=== PATIENT | male | born 1935 | race Caucasian/White ===

== ENCOUNTER 2020-01-30 02:35 | Emergency (ER) | payer MEDICARE, OTHER, SELFPAY ==
[2020-01-30] VITALS (18 sets, daily range): BP systolic 74–129; BP diastolic 40–69; PULSE 45–93; RESP 14–24; TEMP 36.6; O2SAT 96–100; BMI 27.3
--- NOTE | 2020-01-30 02:37 | ED.CHESTPAIN ---
HPI - Chest Pain General Chief Complaint: Chest Pain Stated Complaint: Chest discomfort Time Seen by Provider: 01/30/20 02:37 Source: patient Mode of arrival: Ambulatory Limitations: no limitations History of Present Illness HPI narrative: The patient arrives by EMS after experiencing chest pain and dyspnea intermittently for 3 days. He has noted increased discomfort with even mild exertion. However tonight the pain started 6:00 p.m., after dinner. The pain usually resolves when he rests. He fell asleep, the pain was still present when he woke up about 1:00 a.m.. The pain intensified to a 8/10 in discomfort. He also was experiencing dyspnea and diaphoresis at the time. His doctor started him on baby aspirin last week. He summoned paramedics. Paramedics gave him a aspirin as well as 2 doses of sublingual nitroglycerin. He has no chest pain or dyspnea upon arrival. He has a history of angina in the . He has a history of left carotid stent, previous experiencing TIAs. He has MS, currently on no medications. He has no history of hypertension, hyperlipidemia, or diabetes. He is on no medications other than aspirin. His primary care doctor has set him up for cardiology appointment, that appointment is several days away. He has no history of OR. He has no cough for fever. He is concerned about his is home with dementia. Related Data Allergies Allergy/AdvReac Type Severity Reaction Status Date / Time No Known Drug Allergies Allergy Verified 01/30/20 04:20 Review of Systems Review of Systems ROS Unobtainable: All systems reviewed & are unremarkable except as noted in HPI and below Constitutional Constitutional: Denies chills, Denies fever(s), Denies lethargy and Denies weakness Eyes Eyes: Denies change in vision and Denies loss of vision ENT Ears, Nose, Mouth, and Throat: Denies change in voice, Denies neck pain and Denies sore throat Cardiovascular Cardiovascular: Reports chest pain, Reports chest pain with activity, Reports diaphoresis, Denies syncope, Denies rapid heart rate, Denies claudication, Denies leg edema and Reports dyspnea on exertion Respiratory Respiratory: Denies chest congestion, Denies cough, Denies hemoptysis and Reports dyspnea on exertion Gastrointestinal Gastrointestinal: Denies abdominal pain, Denies diarrhea, Denies nausea and Denies vomiting Comments: Normal appetite Musculoskeletal Musculoskeletal: Denies back pain and Denies neck pain Integumentary/Breasts Skin/Breast: Denies erythema, Denies rash and Denies wounds Neurologic Neurologic: Denies confusion, Denies syncope, Denies loss of vision and Denies weakness Psychiatric Psychiatric: Denies anxiety, Denies confusion and Denies depression Patient History Medical History (Updated 01/30/20 @ 04:26 by Armond Vazquez MD) History of angina (Acute) History of left common carotid artery stent placement (Acute) History of TIA (transient ischemic attack) (Acute) Multiple sclerosis (Acute) Peripheral vascular disease (Acute) Social History Smoking Status: Never smoker Exam Initial Vital Signs Initial Vital Signs: Vital Signs Temperature 97.8 F 01/30/20 02:52 Pulse Rate 87 01/30/20 02:52 Respiratory Rate 15 01/30/20 02:52 Blood Pressure 104/69 01/30/20 02:52 Pulse Oximetry 97 01/30/20 02:52 Const General: cooperative and well developed Nutritional Appearance: well nourished [facility] Head: normal to inspection, normocephalic and atraumatic Mouth: oral mucosae normal Throat: posterior oropharynx normal and posterior oropharynx abnormal Eyes General: appearance normal, both eyes and all related structures Eyelids: eyelids normal Conjunctivae: conjunctivae normal Sclera: sclerae normal Pupils: PERRL EOM: EOM intact bilaterally Neck Neck: No lymphadenopathy and No JVD Chest Chest: normal inspection of the chest Resp Effort & Inspection: normal respiratory effort and able to speak in complete sentences Auscultation: clear to auscultation bilaterally, no rales, no rhonchi and no wheezes Cardio Rate: regular rate Rhythm: regular rhythm Heart Sounds: S1 normal, S2 normal, no click, no gallops, no murmurs and no rubs Pulses: normal peripheral pulses GI Inspection: normal to inspection, no abdominal wall ecchymosis and non-distended Palpation: soft, no hepatosplenomegaly, No guarding, No pulsatile mass and No tender Auscultation: normal bowel sounds Back/Spine/Pelvis Back: No CVA tenderness Cervical Spine: cervical ROM normal and No pain with cervical ROM Thoracic/Lumbar Spine: thoracic and lumbar spine normal to inspection Skin General: no rashes or lesions noted and No petechiae Neuro General: alert, oriented x3, gait normal and no focal motor deficits Speech: speech normal Extrem General: full ROM, no pedal edema and no calf tenderness Psych Appearance: well kempt Mental Status: mental status grossly normal Affect: normal affect Attitude: cooperative Thought Content: normal Judgment: judgment good Course Course Course Narrative: The patient was pain-free upon arrival here, but is experiencing crescendo angina prior to arrival. EKG shows sinus Robin, chest x-ray was clear. However labs revealed an elevated troponin, the patient was started on heparin given low-dose inotrope wall for non-STEMI. Is also noted that his glucose is elevated, consistent with diabetes I have discussed the case with Cardiology, Dr. Aguilar at [facility] and the hospitalist, Dr. Lucero at [facility]. The patient has been accepted by the hospitalist, with pending cardiology consultation. The patient has normal vital signs, is pain-free at the time of transfer. Prior to transfer the patient had recurrence of chest pain, but only 1/10 level of pain. However he developed bradycardia to the 40s, and his blood pressure dropped to 76 systolic. As the blood pressure and heart rate dropped he complains of increased symptoms. Atropine 1 mg was given slowly in 0.25 mg intervals. His blood pressure slowly increased to 80s, his heart rate increased to 113 systolic. His symptoms improved. The consulting student life vice president, Dr. Aguilar was notified, the accepting hospitalist, Dr. Lucero was notified. He did receiving normal saline bolus. He continues to receive heparin. Nitroglycerin was not given due to the hypotension. Orders Ordered: ED Orders 01/30/20 EKG-12 Lead Stat 01/30/20 02:51 XR chest 1V Stat 01/30/20 03:05 Complete Blood Count AUTO DIFF Stat Comprehensive Metabolic Panel Stat Lipase Stat Partial Thromboplastin Time Stat Prothrombin Time INR Stat Troponin & CK Cardiac Panel Stat Sodium Chloride (Normal Saline 0.9%) 1,000 mls @ 150 mls/hr IV CONT EVELYN Last Admin: 01/30/20 03:21 Dose: 150 mls/hr Documented by: RODRICK Heparin Sodium/Dextrose (Heparin Drip) 25,000 unit in 500 mls @ 20 mls/hr IV CONT EVELYN; Protocol Last Admin: 04/08/20 04:21 Dose: 1,000 units/hr, 20 mls/hr Documented by: MARTHA Nitroglycerin (Nitro-Bid) 0.5 inch TOP NOW ONE Stop: 01/30/20 06:16 Discontinued Medications Heparin Sodium (Porcine) (Heparin) 5,000 unit IV NOW ONE Stop: 01/30/20 04:11 Last Admin: 01/30/20 04:20 Dose: 5,000 unit Documented by: MARTHA Metoprolol Tartrate (Lopressor) 12.5 mg PO NOW ONE Stop: 01/30/20 04:11 Last Admin: 01/30/20 04:41 Dose: 12.5 mg Documented by: RODRICK Vital Signs Vital signs: Vital Signs - 8 hr 01/30/20 02:52 01/30/20 03:30 01/30/20 04:00 Temperature 97.8 F Pulse Rate 87 65 72 Respiratory Rate 15 18 16 Blood Pressure 104/69 Blood Pressure [Left Arm] 106/58 L 116/56 L Pulse Oximetry 97 96 99 01/30/20 04:30 Temperature Pulse Rate 71 Respiratory Rate 21 Blood Pressure Blood Pressure [Left Arm] 127/60 Pulse Oximetry 99 MDM - Chest Pain Lab Data Result diagrams: 01/30/20 03:05 01/30/20 03:05 Labs: Lab Results 01/30/20 01/30/20 01/30/20 Range/Units 03:05 03:05 03:05 WBC 6.8 (4.5-11.0) X10^3/uL RBC 4.17 L (4.5-5.9) X10^6/uL Hgb 12.6 L (13.5-17.5) g/dL Hct 37.2 L (41-53) % MCV 89.2 (80-100) fL MCH 30.1 (26-34) PG MCHC 33.8 (30-36) % RDW 13.5 (11.6-14.8) % Plt Count 232 (150-400) X10^3/uL Neut % (Auto) 76.5 H (50-75) % Lymph % (Auto) 13.1 L (25-40) % Lamar % (Auto) 6.7 (3-14) % Eos % (Auto) 2.6 (2-4) % Baso % (Auto) 1.1 (0-2) % Neut # (Auto) 5200 (9130-5379) /uL Lymph # (Auto) 900 L (7071-1407) /uL Lamar # (Auto) 500 (0-900) /uL Eos # (Auto) 200 (0-450) /uL Baso # (Auto) 100 (0-100) /uL PT 11.6 (10.1-12.7) SECONDS INR 1.0 (0.9-1.3) APTT 29 (26.4-36.2) SECONDS Sodium 140 (137-145) mmol/L Potassium 4.0 (3.4-5.1) mmol/L Chloride 106 (98-107) mmol/L Carbon Dioxide 24 (22-32) mmol/L BUN 21 H (9-20) mg/dL Creatinine 1.12 (0.66-1.25) mg/dL Estimated GFR > 60.0 (>60) mL/min BUN/Creatinine Ratio 18.8 (6-22) Glucose 218 H (80-110) mg/dL Calcium 9.6 (8.4-10.2) mg/dL Total Bilirubin 0.4 (0.2-1.3) mg/dL AST 62 H (17-59) IU/L ALT 24 (<50) IU/L Alkaline Phosphatase 39 (38-126) U/L Total Creatine Kinase 416 H (55-170) U/L CK-MB (CK-2) 37.50 H (<2.37) ng/mL CK-MB (CK-2) Rel Index 9.0 H* (1.5-5.0) % Troponin I 5.770 H* (0.01-0.034) ng/mL Total Protein 6.9 (6.3-8.2) g/dL Albumin 4.3 (3.5-5.0) g/dL Globulin 2.6 (1.7-4.1) g/dL Albumin/Globulin Ratio 1.7 (1.0-2.8) Lipase 99 (23-300) U/L Imaging Data Chest x-ray: My Impression: No acute findings ECG Data Attestation: I personally reviewed and interpreted this ECG as follows: (Sinus bradycardia rate 58 beats per minute. Left axis deviation. Nonspecific ST T wave abnormalities. Possible inferior ischemia. EKG #2: (Chest pain 11/02) sinus bradycardia rate 53 beats per minute. Left axis deviation. Nonspecific ST T wave changes. No changes from the initial EKG.) Critical Care Time Critical Care Time Critical Care Time: Yes Total Critical Care Time: 50 Attestation: Critical care time included the initial assessment of the patient, evaluation of Radiology, EKG and lab data, and multiple clinical decisions. I informed the patient of the clinical findings. Of arrange transfer the patient for definitive cardiology care. Time included consultation with Cardiology and the accepting hospitalist. Discharge Plan Departure Patient Disposition: [facility] Clinical Impression: Non-ST elevated myocardial infarction (non-STEMI), Peripheral vascular disease, Multiple sclerosis, History of TIA (transient ischemic attack), Diabetes mellitus, new onset
--- NOTE | 2020-01-30 02:51 | DI.RAD.S_ITS ---
PROCEDURE: XR CHEST 1V INDICATIONS: chest pain TECHNIQUE: One view of the chest was acquired. COMPARISON: None. FINDINGS: Surgical changes and devices: Fixation hardware in lower cervical spine is seen. Lungs and pleura: Mild increased vascular markings and bilateral hilar region are seen with mild bronchial wall thickening. No definite focal infiltrate. No pleural effusions or pneumothorax. Mediastinum: Mediastinal contours appear normal. Heart size is normal. Bones and chest wall: No suspicious bony lesions. Overlying soft tissues appear unremarkable. IMPRESSION: Suggestion of mild reactive airway disease. No definite focal infiltrate. Dictated by: Fidel Benavides M.D. on 01/30/2020 at 8:38 Approved by: Fidel Benavides M.D. on 01/30/2020 at 8:38
[2020-01-30 03:15] LABS: Add Manual Diff / Slide Review NO; Basophils Absolute Auto 100 /uL (0-100); Basophils Percent Auto 1.1 % (0-2); Eosinophils Absolute Auto 200 /uL (0-450); Eosinophils Percent Auto 2.6 % (2-4); Hematocrit 37.2 % (41-53); Hemoglobin 12.6 g/dL (13.5-17.5); Lymphocytes Absolute Auto 900 /uL (1100-4500); Lymphocytes Percent Auto 13.1 % (25-40); Mean Corpuscular HGB Conc 33.8 % (30-36); Mean Corpuscular Hemoglobin 30.1 PG (26-34); Mean Corpuscular Volume 89.2 fL (80-100); Monocytes Absolute Auto 500 /uL (0-900); Monocytes Percent Auto 6.7 % (3-14); Neutrophils Absolute Auto 5200 /uL (1500-7000); Neutrophils Percent Auto 76.5 % (50-75); Platelet Count 232 X10^3/uL (150-400); Red Blood Cell Count 4.17 X10^6/uL (4.5-5.9); Red Cell Distribution Width 13.5 % (11.6-14.8); White Blood Cell Count 6.8 X10^3/uL (4.5-11.0)
[2020-01-30 03:21] LABS: Prothrombin Time 11.6 SECONDS (10.1-12.7)
[2020-01-30] MEDS: SODIUM CHLORIDE 0.9% 1,000 ML 150 ML IV (03:21)
[2020-01-30 03:23] LABS: PTT Partial Thromboplastin Tim 29 SECONDS (26.4-36.2)
[2020-01-30 03:24] LABS: Alanine Aminotransferase 24 IU/L (<50); Albumin 4.3 g/dL (3.5-5.0); Albumin Globulin Ratio 1.7 (1.0-2.8); Alkaline Phosphatase 39 U/L (38-126); Aspartate Aminotransferase 62 IU/L (17-59); BUN Creatinine Ratio 18.8 (6-22); Bilirubin Total 0.4 mg/dL (0.2-1.3); Blood Urea Nitrogen 21 mg/dL (9-20); Calcium 9.6 mg/dL (8.4-10.2); Carbon Dioxide 24 mmol/L (22-32); Chloride 106 mmol/L (98-107); Creatine Kinase 416 U/L (55-170); Estimated Glomerular Filt Rate > 60.0 mL/min (>60); Globulin 2.6 g/dL (1.7-4.1); Glucose 218 mg/dL (80-110); HEMOLYSIS < 15 (0-50); Lipase 99 U/L (23-300); Sodium 140 mmol/L (137-145); Total Protein 6.9 g/dL (6.3-8.2)
[2020-01-30] MEDS: HEPARIN 5,000 UNIT/ML VIAL 5000 UNIT IV (04:20)
[2020-01-30] MEDS: HEPARIN DRIP 25,000 UNIT/500 ML IV.SOLN 20 UNIT IV (04:21)
[2020-01-30] MEDS: METOPROLOL IR 25 MG TABLET 12.5 MG PO (04:41)
--- NOTE | 2020-01-30 06:10 | PC.NURSE ---
Pt's hr dropping to 49. Pt report's pressure back in chest. Ekg ordered at this time. Provider aware of HR.
[2020-01-30] MEDS: ONDANSETRON 4 MG/2 ML INJ IV (06:30)
[2020-01-30] MEDS: ATROPINE 1 MG/10 ML SYRINGE 0.5 MG IV (06:37)
[2020-01-30] MEDS: ATROPINE 1 MG/10 ML SYRINGE 0.25 MG IV (06:42)
--- NOTE | 2020-01-30 07:28 | PC.NURSE ---
Pt's hr continued to drop and chest pressure increased. BP dropped as low as 74 systolic. Provider in room. Pt appeared pale and diaphoretic. Provider order atropine. Gave total 0.75mg atropine. transport team in room. after atropine, bp increased to 110's systolic. and was transported.
== END 2020-01-30 07:01 | disposition short-term general hospital (02) ==
PROVIDERS: Emergency Provider Emergency Medicine
DX: I21.4 Non-ST elevation (NSTEMI) myocardial infarction (principal); I73.9 Peripheral vascular disease, unspecified; G35 Multiple sclerosis; E11.9 Type 2 diabetes mellitus without complications; Z86.73 Personal history of transient ischemic attack (TIA), and cerebral infarction without residual deficits
CPT/HCPCS: 36415; 71045; 80053; 82550; 82553; 83690; 84484; 85025; 85610; 85730; 93005; 96365; 96366; 96375; 96376; 99284; 99291; J0461; J1644; J2405